=== PATIENT | male | born 2000 | race Caucasian/White ===

== ENCOUNTER 2019-01-24 21:41 | Emergency (ER) | payer OTHER ==
[2019-01-25] MEDS ORDERED: NS 0.9% 1000 ML** 1,000 ML IV ONE (00:05)
[2019-01-25] MEDS ORDERED: Ketorolac INJ* 30 MG/ML 1 ML VIAL IV PUSH ONE (00:06)
--- NOTE | 2019-01-25 00:10 | ED ---
Abdominal Pain/Male - HPI Summary HPI Summary: This patient is a 18 year old M presenting to [facility] with a chief complaint of testicular pain and RLQ pain since 17:30. The patient notes that his symptoms began while he was lifting weights at the gym. The patient rates the pain 4/10 in severity. Symptoms aggravated by movement. Symptoms alleviated by nothing. Patient denies N/V/D, dysuria, or decreased appetite. - History of Current Complaint Chief Complaint: EDAdyin Stated Complaint: "I THINK I MIGHT HAVE APPENDICITIS" PER PT Time Seen by Provider: 01/24/19 23:58 Hx Obtained From: Patient Onset/Duration: Sudden Onset, Lasting Hours, Still Present Timing: Constant, Lasting Hours Severity Initially: Mild Severity Currently: Mild Pain Intensity: 5 Pain Scale Used: 0-10 Numeric Location: Discrete At: RLQ Aggravating Factor(s): Movement Alleviating Factor(s): Nothing Associated Signs And Symptoms: Positive: Other - testicular pain. Negative: Urinary Symptoms, Decreased Appetite, Nausea, Vomiting, Diarrhea - Allergies/Home Medications Allergies/Adverse Reactions: Allergies Allergy/AdvReac Type Severity Reaction Status Date / Time No Known Allergies Allergy Verified 01/24/19 21:48 Home Medications: Home Medications NK [No Home Medications Reported] 01/25/19 [History Confirmed 01/25/19] PMH/Surg Hx/FS Hx/Imm Hx Endocrine/Hematology History: Denies: Hx Diabetes Opthamlomology History: Denies: Hx Legally Blind EENT History: Denies: Hx Deafness - Surgical History Surgery Procedure, Year, and Place: none Infectious Disease History: No Infectious Disease History: Denies: Traveled Outside the [place] in Last 30 Days - Family History Known Family History: Negative: Diabetes - Social History Occupation: Student Lives: Dormitory/Roommates Review of Systems Negative: Fever Negative: Epistaxis Positive: Abdominal Pain - RLQ tenderness. Negative: Vomiting, Diarrhea, Nausea Positive: pain - testicular pain. Negative: dysuria Negative: Rash All Other Systems Reviewed And Are Negative: Yes Physical Exam - Summary Physical Exam Summary: VITAL SIGNS: Reviewed. GENERAL: Patient is a well-developed and nourished MALE who is lying comfortable in the stretcher. Patient is not in any acute respiratory distress. HEAD AND FACE: No signs of trauma. No ecchymosis, hematomas or skull depressions. No sinus tenderness. EYES: PERRLA, EOMI x 2, No injected conjunctiva, no nystagmus. EARS: Hearing grossly intact. Ear canals and tympanic membranes are within normal limits. MOUTH: Oropharynx within normal limits. NECK: Supple, trachea is midline, no adenopathy, no JVD, no carotid bruit, no c- spine tenderness, neck with full ROM. CHEST: Symmetric, no tenderness at palpation LUNGS: Clear to auscultation bilaterally. No wheezing or crackles. CVS: Regular rate and rhythm, S1 and S2 present, no murmurs or gallops appreciated. ABDOMEN: Soft, RLQ tenderness. No signs of distention. No rebound no guarding, and no masses palpated. Bowel sounds are normal. EXTREMITIES: FROM in all major joints, no edema, no cyanosis or clubbing. NEURO: Alert and oriented x 3. No acute neurological deficits. Speech is normal and follows commands. SKIN: Dry and warm TESTICULAR EXAM: normal, no swelling, no tenderness Triage Information Reviewed: Yes Vital Signs On Initial Exam: Initial Vitals Temp Pulse Resp BP Pulse Ox 98.6 F 96 20 170/82 99 01/24/19 21:44 01/24/19 21:44 01/24/19 21:44 01/24/19 21:44 01/24/19 21:44 Vital Signs Reviewed: Yes Diagnostics - Vital Signs Vital Signs Temp Pulse Resp BP Pulse Ox 01/24/19 23:50 99.2 F 88 16 151/78 98 01/24/19 21:44 98.6 F 96 20 170/82 99 - Laboratory Result Diagrams: 01/25/19 00:13 01/25/19 00:13 Lab Statement: Any lab studies that have been ordered have been reviewed, and results considered in the medical decision making process. - CT CT abd/Pelvis CT Interpretation Completed By: Radiologist Summary of CT Findings: No acute findings. Dr. Hammonds has reviewed this report. Abdominal Pain Male Course/Dx - Course Course Of Treatment: This patient is a 18 year old M presenting to [facility] with a chief complaint of testicular pain and RLQ pain since 17:30. Physical exam reveals RLQ tenderness and normal testicular exam with no swelling or tenderness. Bloodwork and UA obtained. CT Abd/Pelvis reveals, per radiologist, no acute findings. ED physician has reviewed this radiology report. In the ED course the patient was given Toradol and IV fluids. Dx abd pain. Patient will be discharged home with follow up from PCP. The patient is agreeable with this plan. - Diagnoses Provider Diagnoses: Abdominal pain Discharge - Sign-Out/Discharge Documenting (check all that apply): Patient Departure - discharge home Patient Received Moderate/Deep Sedation with Procedure: No - Discharge Plan Condition: Stable Disposition: HOME Patient Education Materials: Acute Abdominal Pain (ED) Referrals: [facility] [Outside] - 1 Day Additional Instructions: Follow up with your primary care physician in 1-2 days. Return to the emergency department with any new or worsening symptoms. - Attestation Statements Document Initiated by Scribe: Yes Documenting Scribe: Betina Pace Provider For Whom Scribe is Documenting (Include Credential): Ruby Hammonds MD Scribe Attestation: Betina Puri, scribed for Ruby Hammonds MD on 01/25/19 at 0427. Status of Scribe Document: Ready
[2019-01-25 00:23] LABS: ABS Basophils 0.1 10^3/ul (0-0.2); ABS Eosinophils 0.1 10^3/ul (0-0.6); ABS Lymphocytes 2.3 10^3/ul (1.0-4.8); ABS Neutrophils 14.2 10^3/ul (1.5-7.7); ABS Nucleated RBC 0 10^3/ul; Eosinophil % 0.4 %; Hematocrit 43 % (42-52); Hemoglobin 14.5 g/dl (14.0-18.0); Lymphocyte % 12.9 %; Mean Corpuscular HGB Conc 33 g/dl (31-36); Mean Corpuscular Hemoglobin 30 pg (27-31); Mean Corpuscular Volume 91 fL (80-94); Nucleated Red Blood Cells % 0; Platelet Count 307 10^3/ul (150-450); Red Blood Count 4.77 10^6/ul (4.00-5.40); Red Cell Distribution Width 13 % (10.5-15); White Blood Count 17.6 10^3/ul (3.5-10.8)
[2019-01-25 00:24] LABS: Urine Appearance Clear; Urine Bilirubin Negative (Negative); Urine Blood Negative (Negative); Urine Color Straw; Urine Glucose Negative (Negative); Urine Ketones Negative (Negative); Urine Nitrite Negative (Negative); Urine Protein Negative (Negative); Urine Specific Gravity 1.011 (1.010-1.030); Urine Urobilinogen Negative (Negative)
[2019-01-25 00:38] LABS: ALT 38 U/L (7-52); AST 37 U/L (13-39); Albumin 4.5 g/dL (3.2-5.2); Albumin/Globulin Ratio 1.6 (1-3); Alkaline Phosphatase 79 U/L (34-104); Amylase 34 U/L (29-103); Anion Gap 7 mmol/L (2-11); BUN/Creatinine Ratio 14.8 (8-20); Blood Urea Nitrogen 16 mg/dL (6-24); C Reactive Protein 2.52 mg/L (<8.01); CO2 Carbon Dioxide 27 mmol/L (22-32); Calcium 9.3 mg/dL (8.6-10.3); Chloride 102 mmol/L (101-111); EGFR African American 106.6 (>60); EGFR Non-African American 88.1 (>60); Globulin 2.9 g/dL (2-4); Glucose 96 mg/dL (70-100); Potassium 4.2 mmol/L (3.5-5.0); Sodium 136 mmol/L (135-145); Total Protein 7.4 g/dL (6.4-8.9)
[2019-01-25] MEDS ORDERED: Iohexol 300* (CONTRAST) 10 ML SDV IV ONE (02:47)
[2019-01-25 04:36] VITALS: BP 107/59
== END 2019-01-25 04:38 | disposition home or self-care (01) ==
LOC: ED 21:41
DX: R10.31 Right lower quadrant pain (principal); N50.819 Testicular pain, unspecified
CPT/HCPCS: 36415; 74177; 80053; 81003; 82150; 83690; 83735; 85025; 86140; 96361; 96374; 99284; J1885; Q9967